=== PATIENT | female | born 1980 | race Caucasian/White ===

== ENCOUNTER → 2023-02-28 | Outpatient (CLI) | payer MEDICAID | LOC: ORTHO 09:29 | PROVIDERS: ATTEND Orthopaedic Surgery | DX: M65.4 Radial styloid tenosynovitis [de Quervain] (principal) | CPT/HCPCS: 99213 ==

== ENCOUNTER → 2023-03-11 | Outpatient (CLI) | payer MEDICAID ==
[~2023-03-11] VITALS: Ht 160.2 cm; Wt 131.8 kg
[~2023-03-11] MED LIST: ATOR20TA66 PO; CARV25TA PO; CELE-91 PO; CHOL500049 PO; DICY-11 PO; DULA3PEN SQ; FENO160T12 PO; LAMO200T5 PO; LEVO150C4 PO; LISI40TA9 PO; LORA-1389 PO; METF-397 PO; METO10PO MC; NORT25CA PO; OMEP-401 PO; PREG75CA76 PO; PROP20SO PO; SERT-414 PO; SUMA100P MC; TOPI100T11 PO
== END | disposition home or self-care (01) ==
LOC: PREOP 05:40
PROVIDERS: ATTEND Orthopaedic Surgery
DX: Z01.818 Encounter for other preprocedural examination (principal)

== ENCOUNTER 2023-03-18 07:57 | Day surgery (SDC) | payer MEDICAID ==
[~2023-03-18] VITALS: Ht 162 cm; Wt 131.8 kg
[2023-03-18] VITALS (8 sets, daily range): BP systolic 90–109; BP diastolic 43–67
[2023-03-18] MEDS ORDERED: ceFAZolin INJECTION 2,000 MG in NS (IVPB) 50 ML 50 ML IV ONE (08:00)
[2023-03-18] MEDS ORDERED: LACTATED RINGERS 1,000 ML 1,000 ML IV PRN (08:30)
[2023-03-18] MEDS ORDERED: LIDOCAINE 2% w/EPI 1:100,000 20 ML VIAL ONE (08:35)
--- NOTE | 2023-03-18 08:36 | Progress Note-Pre Operative ---
Pre-Operative Progress Note Date of Available H&P: Feb 28, 2023 Date H&P Reviewed: Mar 18, 2023 Time H&P Reviewed: 08:30 History & Physical: H&P Reviewed, Patient Examed, No changes noted Pre-Operative Diagnosis: Left DeQuervain's Tenosynovitis VERONICA MEI MD Mar 18, 2023 08:36
[2023-03-18] MEDS ORDERED: KETAMINE 50 MG/5 ML SYRINGE ONE (08:41)
[2023-03-18] MEDS ORDERED: OXC5T PO (09:24)
--- NOTE | 2023-03-18 09:30 | Operative Report - Ortho ---
Operative Report Surgeon (s)/[employer] (s) Surgeon VERONICA MEI MD [employer] n/a Pre-Operative Diagnosis Left DeQuervain's Tenosynovitis Post-Operative Diagnosis same Operative Report Date of Procedure: Mar 18, 2023 Name of Procedure Performed: Left Wrist DeQuervain's Release Description & Findings After obtaining informed consent and marking the patient in the preoperative holding area, patient was taken to the operating room. Patient did receive intravenous antibioticis. Sedation was administered. Surgical timeout was taken. Local anesthetic was delivered as a field block. The left upper extremity was prepped and draped in the usual sterile fashion. Incision was made centered over the first dorsal compartment. Blunt dissection was carried down the level of the first dorsal compartment. The proximal edge was identified and beginning proximally and working distally, the first dorsal compartment was released. Tendons demonstrated no damage and excursion of the tendons were normal. Wound was irrigated with normal saline. Tendons were retracted and no accessory slip was identified. Wound was closed with 4-0 nylon suture and dressed with xeroform, 4x4 fluffs, agustín, cast padding, and ANTONI wrap. Patient tolerated the procedure well and was stable to the recovery room. Anesthesia Type Local plus MAC Estimated Blood Loss minimal Specimen(s) collected/removed None VERONICA MEI MD Mar 18, 2023 09:30
== END 2023-03-18 10:35 | disposition home or self-care (01) ==
LOC: SDC 07:57
PROVIDERS: ATTEND Orthopaedic Surgery
DX: M65.4 Radial styloid tenosynovitis [de Quervain] (principal); E66.01 Morbid (severe) obesity due to excess calories; G47.33 Obstructive sleep apnea (adult) (pediatric); F17.210 Nicotine dependence, cigarettes, uncomplicated; Z68.43 Body mass index [BMI] 50.0-59.9, adult
CPT/HCPCS: 87081